=== PATIENT | male | born 2000 | race Caucasian/White ===

== ENCOUNTER 2024-05-29 11:42 | Emergency (ER) | payer SELFPAY ==
[2024-05-29 11:43] VITALS: BP 104/53; PULSE 62; RESP 14; TEMP 36.9; O2SAT 98
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
[2024-05-29] MEDS: HYDROmorphone 2 MG/ML SYR IVP (13:02)
[2024-05-29] MEDS: Bupivacaine 0.5% Pres-Free 30 ML VIAL (13:05)
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
[2024-05-29 14:25] VITALS: BP 142/81; PULSE 86; RESP 14; O2SAT 94
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
== END 2024-05-29 14:39 | disposition home or self-care (01) ==
PROVIDERS: Emergency Provider Physician Assistant
DX: S43.015A Anterior dislocation of left humerus, initial encounter (principal); F17.210 Nicotine dependence, cigarettes, uncomplicated; W03.XXXA Other fall on same level due to collision with another person, initial encounter; Y93.89 Activity, other specified; Y92.481 Parking lot as the place of occurrence of the external cause
CPT/HCPCS: 23650; 73030; 80053; 99284; 71046; 83735; 84484; 85025; J0665; J1171